=== PATIENT | female | born 1995 | race Caucasian/White ===

== ENCOUNTER 2025-07-20 16:03 | Outpatient (CLI) | payer OTHER, SELFPAY | END 2025-07-20 16:04 | disposition home or self-care (01) | LOC: NFLDREF 07-25 16:03 | PROVIDERS: PCP Family Medicine; Referring Provider Family Medicine; Visit Provider Registered Nurse | DX: Z31.9 Encounter for procreative management, unspecified (principal) | CPT/HCPCS: 82670; 83001; 84443 ==

== ENCOUNTER 2025-07-26 10:47 | Outpatient (CLI) | payer OTHER, SELFPAY ==
--- NOTE | 2025-07-26 11:15 | CRLHL7_ITS ---
For Patients: As a result of the Century Cures Act, medical imaging exams and procedure reports are released immediately into your electronic medical record. You may view this report before your referring provider. If you have questions, please contact your health care provider. Indication: Encounter for pro creative management, unspecified Technique: Hysterosalpingogram performed. Fluoroscopic time 25 seconds. IMPRESSION: Normal patency of the fallopian tubes with extension into the peritoneum bilaterally, [id number]. Air bubbles are incidentally noted within the endometrial canal. Dictated by Jaden Silva MD @ 07/26/2025 3:40:17 PM (Electronically Signed)
--- NOTE | 2025-07-26 12:05 | W.PM.GYNPROC ---
Procedure Note Date of procedure: 07/26/25 Will [facility] bill your pro fee for this procedure?: Yes Pre-op diagnosis: Infertility Procedure: Hysterosalpingogram Anesthesia: none Complications: None Surgeon: Eddi Montelongo MD Estimated blood loss (mL): 5 Condition: stable Findings: Cervical stenosis at internal os Normal endometrial contour Freely patent left fallopian tube Right proximal tubal spasm initially, with further administration contrast was noted throughout right tube with small spill Procedure Description: DATE: 07/26/25 1. Infertility. 2. Patent fallopian tubes bilaterally. NAME OF PROCEDURE: Hysterosalpingogram. ANESTHESIA: None. COMPLICATIONS: None. PROCEDURE: After obtaining verbal consent, the patient was placed in the dorsal lithotomy position on the x-ray table. A small plastic speculum was introduced into the vagina and the cervix easily visualized. The cervix and vagina were then prepped with Betadine. The anterior lip of the cervix was grasped with a single-tooth tenaculum for traction. A balloon tipped double-lumen catheter was attempted to be passed, resistance met. Os finder was requested, where stenosis at the level of the internal os was again noted. Small rigid dilators were requested, but while being retrieved continued attempts at dilation via os finder ensued. Ultimately, the internal os was successfully dilated gently with os finder. The balloon tipped double-lumen catheter was then gently inserted through the cervical opening into the uterine cavity to the level of the fundus. The balloon was insufflated with 3 mL of air. Tenaculum was removed. The patient was repositioned in the supine position, covered, and the radiologist was called to the room. A hysterosalpingogram was then performed. A total of 5 cc of Optiray 300 water soluble contrast dye was injected through the double-lumen catheter under moderate pressure. There was immediate fill of the uterine cavity to the cornua and immediate fill of the left fallopian tube with free spillage. Proximal right tubal occlusion was noted, where after a moment of rest ad additional 5cc of contrast dye was injected under moderate pressure. Contrast was noted to then fill the right tube as well, with small volume free spill. The balloon was deflated. The catheter was removed. Excellent hemostasis noted at cervical os and tenaculum site. Speculum removed. The patient tolerated the procedure well, though she did have moderate cramping discomfort during and just after the procedure. She was discharged to home in stable condition and to [facility].
== END 2025-07-26 10:48 | disposition home or self-care (01) ==
LOC: RAD 10:48
PROVIDERS: PCP Family Medicine; Visit Provider Obstetrics & Gynecology
DX: N97.9 Female infertility, unspecified (principal); Z31.9 Encounter for procreative management, unspecified
CPT/HCPCS: 58340; 74740; A4649; Q9967

== ENCOUNTER 2025-08-07 16:30 | Outpatient (CLI) | payer OTHER, SELFPAY | END 2025-08-07 16:31 | disposition home or self-care (01) | LOC: NFLDREF 08-17 01:47 | PROVIDERS: PCP Family Medicine; Referring Provider Family Medicine; Visit Provider Registered Nurse | DX: Z31.9 Encounter for procreative management, unspecified (principal) | CPT/HCPCS: 84144 ==